=== PATIENT | male | born 1950 | race Hispanic/Latino ===

== ENCOUNTER 2017-08-06 06:52 | Day surgery (SDC) | payer MEDICARE, BC ==
[2017-08-01 17:27] VITALS: BMI 39.7
[2017-08-06] MEDS ORDERED: Lidocaine 2% Inj (20ml) ONE (07:43)
[2017-08-06] MEDS ORDERED: Iodixanol 320 MG/ML 200 ML BOTTLE IV ONE (07:44)
[2017-08-06] MEDS ORDERED: HEPARIN SODIUM/NS 2,000 ML IV ONE (07:44)
[2017-08-06] MEDS ORDERED: Midazolam 2 MG/2 ML VIAL ONE ×3 (07:44→10:13)
[2017-08-06 07:59] LABS: BASO # 0.03 K/mm3 (0.0-2.0); BASO % 0.4 % (0.0-3.0); EOS # 0.3 (0.0-0.7); GRAN # 4.4 (1.4-6.5); GRAN % 63.3 % (50.0-68.0); HEMOGLOBIN 14.5 g/dL (14.0-18.0); LYMPH # 1.4 (1.2-3.4); LYMPH % 20.7 % (22.0-35.0); MEAN CELL VOLUME 88.4 fl (80.0-105.0); MEAN CORPUSCULAR HEMOGLOBIN 29.5 pg (25.0-35.0); MEAN CORPUSCULAR HGB CONC 33.4 g/dl (31.0-37.0); MEAN PLATELET VOLUME 9.7 fl (7.0-11.0); MONO # 0.8 (0.1-0.6); MONO % 11.6 % (1.0-6.0); RBC 4.91 10^6/uL (3.5-6.1); RED CELL DISTRIBUTION WIDTH 13.5 % (11.5-14.5)
[2017-08-06 08:08] LABS: BLOOD UREA NITROGEN 14 mg/dL (7-21); GFR AFRICAN-AMERICAN > 60; GFR NON-AFRICAN AMERICAN > 60
[2017-08-06 08:12] LABS: INR 0.96 (0.93-1.08)
[2017-08-06] MEDS ORDERED: Iohexol 350mgl/ml 50 ML ONE (09:36)
[2017-08-06] MEDS ORDERED: Iodixanol 320 MG/ML 100 ML BOTTLE IV ONE ×2 (09:36→10:37)
--- NOTE | 2017-08-06 10:02 | CARD ---
APPROVED REPORT EKG Measurement Heart [id number] WA [id number] <Conclusion> Marked sinus bradycardia Borderline ECG
[2017-08-06] MEDS ORDERED: Sodium Chloride 0.9% 1,000 ML IV SCH (11:00)
--- NOTE | 2017-08-06 21:31 | CARDCATH ---
PROCEDURE DATE: 08/06/2017 HISTORY: The patient is a 66-year-old male with a history of hypercholesterolemia and hypertension who presents with an abnormal stress test. Because of this, cardiac catheterization was recommended. PROCEDURE: Left heart catheterization with coronary arteriography, left ventriculogram, supra-aortic valvular injection as well as PTCA and stent of a diagonal vessel off of the LAD. The right femoral artery was cannulated with 6-Syriac sheath. There were no complications. I performed moderate sedation which included the presence of an independent trained observer that assisted in monitoring the patient's level of consciousness and physiologic status. After administration of Versed and fentanyl, my intra service time was 30 minutes. The findings on catheterization revealed a left ventricle that was within normal limits. Estimated ejection fraction of 60%. The RCA was a right dominant circulation and was visualized with supra-aortic valvular injection. There were no lesions noted in the proximal, mid and distal portion of the RCA. The left main artery was unremarkable. The LAD revealed intimal irregularities throughout without critical lesions. The diagonal vessel which was a moderate size vessel revealed 80% stenoses in its proximal portion. The circumflex artery and obtuse marginal branches revealed intimal irregularities without critical lesions. The patient was started on intravenous Angiomax. On the fluoroscopic guide, the guiding catheter was placed in the ostium of the left main artery. An 0.014 ATW wire was used to cross the critical lesion in the diagonal vessel off the LAD. A 2.25 x 8 mm drug-eluting stent was placed and deployed at 14 atmospheres of pressure. Repeat coronary arteriography revealed an excellent result with no residual stenosis and MARK III flow. Patient tolerated the procedure well. In summary, the procedure was successful with PTCA and stent of an 80% stenosis in the proximal diagonal vessel of the LAD. Cardiac catheterization revealed single-vessel CAD. Normal LV function. Given these findings, the patient will need to will need to remain on aspirin indefinitely and Plavix for at least a year and undergo a strict cardiac risk reduction program which needs to include aggressive weight loss. Jasbir Villanueva MD
[2017-08-07 00:29] VITALS: RESP 20; TEMP 97.6
--- NOTE | 2017-08-07 01:02 | HP ---
HISTORY OF PRESENT ILLNESS: I was called by Dr. Jasbir Villanueva to come and admit him to my service, status post cardiac cath and stent placement this morning at [facility]. He is a 66-year-old white male who is lying flat in the hospital bed, status post cardiac stent for coronary artery disease. He had a left heart cath with stent placement. He has a history of hypertension, high cholesterol. He is obese. He has no history of blood transfusions. He is not drinking much and/or smoking. He has a family history of coronary artery disease. He has had surgeries before. He has no acute vision or hearing changes. He is only short of breath at times with exertion. No nausea or vomiting. No abdominal pain. No extremity pain. PHYSICAL EXAMINATION: VITAL SIGNS: He has a 97.8 temperature, 50 pulse, 139/60 blood pressure, 20 respiratory rate, and 99% O2 sat on room air. HEAD: Atraumatic, normocephalic. Extraocular muscles are intact. Throat is moist. NECK: Supple. HEART: Regular rate. LUNGS: Decreased breath sounds but clear to auscultation. ABDOMEN: Soft, obese, nontender with positive bowel sounds. EXTREMITIES: No edema. He is lying flat at this time. NEUROLOGIC: Cranial nerves II through XII grossly intact. MEDICATIONS: He is currently on Ecotrin, Lipitor, Plavix, and IV fluids. LABORATORY DATA: He has 138 sodium, potassium 3.9, BUN 14, creatinine 1, GFR is greater than 60, sugar is 90, calcium is 9. INR is 0.96. He has 7 white count, 14.5 hemoglobin, 43.4 hematocrit with 200 platelets. We will check his labs tomorrow. He understands to lie back in the bed for 6 hours status post procedure. His diet ordered. Hopefully, tomorrow when I see him, will be able to discharge him home. Esau Wong DO
[2017-08-07 06:17] VITALS: BP 163/78; O2SAT 99
[2017-08-07 06:41] LABS: BASO # 0.02 K/mm3 (0.0-2.0); BASO % 0.3 % (0.0-3.0); EOS # 0.2 (0.0-0.7); EOS % 2.8 % (1.5-5.0); GRAN # 4.93 (1.4-6.5); GRAN % 63.5 % (50.0-68.0); HEMOGLOBIN 16.2 g/dL (14.0-18.0); LYMPH # 1.8 (1.2-3.4); LYMPH % 23.1 % (22.0-35.0); MEAN CELL VOLUME 89.9 fl (80.0-105.0); MEAN CORPUSCULAR HEMOGLOBIN 29.7 pg (25.0-35.0); MEAN CORPUSCULAR HGB CONC 33.1 g/dl (31.0-37.0); MEAN PLATELET VOLUME 9.7 fl (7.0-11.0); MONO # 0.8 (0.1-0.6); MONO % 10.3 % (1.0-6.0); RBC 5.45 10^6/uL (3.5-6.1); RED CELL DISTRIBUTION WIDTH 13.7 % (11.5-14.5); WHITE BLOOD COUNT 7.8 10^3/ul (4.5-11.0)
[2017-08-07 08:13] LABS: ALB/GLOB RATIO 1.2 (1.1-1.8); ALBUMIN 4.3 g/dL (3.0-4.8); ALT/SGPT 36 U/L (7-56); AST/SGOT 31 U/L (17-59); BLOOD UREA NITROGEN 12 mg/dL (7-21); CALCIUM 9.4 mg/dL (8.4-10.5); GFR AFRICAN-AMERICAN > 60; GFR NON-AFRICAN AMERICAN > 60
[2017-08-07 09:37] LABS: HDL CHOLESTEROL 57 mg/dL (29-60)
[2017-08-07 09:48] LABS: LDL CHOLESTEROL 138 mg/dL (0-129)
[2017-08-07 10:11] VITALS: PULSE 56
--- NOTE | 2017-08-07 10:35 | DS ---
HOSPITAL COURSE: He had a cardiac cath yesterday with Dr. Villanueva and stent placement. He slept well. He did very well. He is eating well. He is walking well. No complaints. No breathing. No problems. He will go home on his aspirin 81 mg, Lipitor 40, and Plavix 75 mg. PHYSICAL EXAMINATION: VITAL SIGNS: He has 97.6 temperature, pulse, 163/78 blood pressure, 20 respiratory rate, 99% O2 sat on room air. HEENT: Head is atraumatic and normocephalic. HEART: Regular rate. LUNGS: Clear to auscultation. ABDOMEN: Soft EXTREMITIES: No edema. LABORATORY DATA: He did well. He had blood test. Sodium 137, potassium 4.2, BUN 12, creatinine 1, GFR is greater than 60, sugar is 95, calcium is 9.4, total bilirubin is 0.8, AST is 31, ALT is 36, and alkaline phosphatase is 88. Total protein is 7.9 and total albumin is 4.3. White count 7.8, hemoglobin 16.2, hematocrit 49, and platelets 212. He will follow up with his primary care physician and Dr. Villanueva in the outpatient. He will be able to be discharged after Dr. Villanueva sees him. He is here for CAD, cardiac cath, and stent placement. Esau Wong DO [facility]
--- NOTE | 2017-08-07 11:19 | CARD ---
APPROVED REPORT EKG Measurement Heart [id number] <Conclusion> Marked sinus bradycardia Incomplete right bundle branch block Leftward axis Nonspecific ST and T wave abnormality, new
--- NOTE | 2017-08-07 12:11 | PN ---
DATE: 08/07/2017 CARDIOLOGY FOLLOWUP SUBJECTIVE: The patient is asymptomatic. PHYSICAL EXAMINATION: VITAL SIGNS: Blood pressure 147/76 and heart rate is in the 60s. NECK: Negative JVD. LUNGS: Without rales. HEART: Reveals S1 and S2. EXTREMITIES: Without edema. The right groin site is stable. LABORATORY DATA: Hemoglobin is 16.2. Chemistries, BUN and creatinine unremarkable. IMPRESSION 1. Stable post percutaneous transluminal coronary angioplasty and stent with a drug-eluting stent in the diagonal vessel. 2. Hypercholesterolemia. 3. Hypertension. 4. Coronary artery disease. PLAN: Given these findings, the patient is stable for discharge. Followup instructions have been given to the patient in detail. He will need to remain on aspirin indefinitely and Plavix for at least a year and undergo a strict cardiac risk reduction program. Followup instructions have been given to the patient in detail. Jasbir Villanueva MD
== END 2017-08-07 11:40 | disposition home or self-care (01) ==
LOC: CATH 06:52 → 2RSO 11:07 → CATH 08-07 11:40
PROVIDERS: ATTEND Family Medicine
DX: I25.10 Atherosclerotic heart disease of native coronary artery without angina pectoris (principal); E78.00 Pure hypercholesterolemia, unspecified; I10 Essential (primary) hypertension; E66.9 Obesity, unspecified; Z68.39 Body mass index [BMI] 39.0-39.9, adult; Z82.49 Family history of ischemic heart disease and other diseases of the circulatory system; Z79.82 Long term (current) use of aspirin
CPT/HCPCS: 36415 ×2; 80048; 80053; 80061; 85025 ×2; 85027; 85610; 85730; 86850; 86900; 93005; 93458; 99152; 99153; C1769 ×2; C1874; C1887; C2629; C9600; J0360; J0583; J1644; J2250; J3010; J7040 ×2; Q9967 ×2